=== PATIENT | female | born 1965 | race Caucasian/White ===

== ENCOUNTER → 2020-07-28 | Outpatient (CLI) | payer BC ==
--- NOTE | 2020-07-28 11:21 | KCIC ---
EXAM: Right shoulder, 3 views; right clavicle, 2 views; sacrum and coccyx, 3 views. HISTORY: Pain. COMPARISON: None. FINDINGS: Right shoulder and clavicle: 3 views of the right shoulder and 2 views of the right clavicle are obta ined. There is no acute fracture, dislocation or subluxation. There is a small bone island within the right humeral head. There is no suspicious finding at the site of concern demarcated by a skin BB. T his corresponds with the location of the distal clavicle. Sacrum and coccyx: 3 views of the sacrum and coccyx are obtained. There is instrumented posterior spi nal fusion with disc space fusion device placement and laminar decompression at L4-L5. No fracture is seen. The sacroiliac joints and visualized hips are intact. There is no evidence of instrumentation loosening. IMPRESSION: 1. No acute osseous finding. The distal right clavicle underlies the site of palpable concern. No fra cture, dislocation or osseous lesion is seen in this location. 2. Instrumented fusion and laminectomy decompression at L4-L5. There is no acute finding involving th e sacrum and coccyx. Electronically signed by: Gisela Landon MD (07/28/2020 11:18 AM) [id number]
== END ==
LOC: KCIC 10:42
PROVIDERS: ATTEND Family Medicine
DX: M53.3 Sacrococcygeal disorders, not elsewhere classified (principal); M89.8X1 Other specified disorders of bone, shoulder; M25.511 Pain in right shoulder; M43.26 Fusion of spine, lumbar region
CPT/HCPCS: 72220; 73000; 73030